=== PATIENT | male | born 1975 | race Caucasian/White ===

== ENCOUNTER 2016-10-28 07:27 | Day surgery (SDC) | payer OTHER ==
[2016-10-22 11:20] LABS: HEMATOCRIT 43.8 % (40.0-51.0); HEMOGLOBIN 15.6 g/dL (13.6-17.8)
[2016-10-22 11:35] LABS: BUN (BLOOD UREA NITROGEN) 14 MG/DL (6-23); CALCIUM, SERUM 9.2 MG/DL (8.5-10.4); CHLORIDE, SERUM 106 MMOL/L (96-112); CO2 (CARBON DIOXIDE) 25 MMOL/L (24-34); CREATININE 1.03 MG/DL (0.70-1.30); GFR AFRICAN AMERICAN 105 ML/MIN (>=60); GFR NON AFRICAN AMERICAN 90 ML/MIN (>=60); GLUCOSE, SERUM 107 MG/DL (60-99); POTASSIUM, SERUM 4.8 MMOL/L (3.5-5.3); SODIUM, SERUM 140 MMOL/L (135-148)
--- NOTE | ~2016-10-28 | OP ---
Record Of Operation [facility] [address] [place]. [address] NAME: TAMARA WERNER : 77 STATUS : REG [facility]#: [id number] AGE: 41 ADM/REG DATE : 10/28/16 MR#: [id number] REPORT SERV DATE: 10/28/16 DICTATED BY: PAUL LE DATE: 10/28/16 REPORT STATUS : Draft TRANSCRIBED BY: MODL DATE: 10/28/16 DATE OF PROCEDURE: PREOPERATIVE DIAGNOSIS: Impacted and fractured teeth. POSTOPERATIVE DIAGNOSIS: Impacted and fractured teeth. OPERATION: Surgical excision. DESCRIPTION OF PROCEDURE: After induction of nasoendotracheal anesthesia, face and mouth were prepped and draped in a usual manner. Mucoperiosteal flaps were reflected from the left mandibular third molar region. The overlying bone removed with the air turbine and handpiece. The tooth was suctioned and delivered by elevator technique. The follicular tissue was debrided with a curette and the mucoperiosteum was reapproximated with 3-0 plain gut suture. The left maxillary third molar tooth was removed with forceps extraction. Attention was turned to the right mandible, where the same procedure was carried out on the right as described for the left. Bilateral mandibular and maxillary blocks were administered with 0.5% Marcaine with 1:200,000 epinephrine solution, total of 8 mL. The throat pack was removed. The pharynx was suctioned clear. An intramaxillary gauze pressure was placed for hemostasis. ESTIMATED BLOOD LOSS: 50 mL. IV FLUIDS: 400 mL lactated Ringer's. WT/MODL Paul Le D.D.S. / [id number] CC: Vielka Cook M.D.
[~2016-10-28 07:27] MED LIST: ALEVE220 MG PO; ASAB PO; NORV5 PO; PRIN20 PO
== END 2016-10-28 17:44 | disposition home or self-care (01) ==
LOC: SDC 07:27
PROVIDERS: Oral & Maxillofacial Surgery
PROC: 0CTW0Z1 Resection of Upper Tooth, Multiple, Open Approach (ICD-10-PCS; 2016-10-28)
PROC: 0CTX0Z1 Resection of Lower Tooth, Multiple, Open Approach (ICD-10-PCS; principal; 2016-10-28 08:45)
DX: K01.1 Impacted teeth (principal); I10 Essential (primary) hypertension; E66.9 Obesity, unspecified; Z90.49 Acquired absence of other specified parts of digestive tract; Z98.890 Other specified postprocedural states
CPT/HCPCS: 80048; 85014; 85018; 88300; 93005; A9270-GY; J2250; J3010